=== PATIENT | female | born 1970 | race Caucasian/White ===

== ENCOUNTER 2018-08-15 13:51 | Emergency (ER) | payer BC ==
--- NOTE | 2018-08-19 07:14 | CONSULT ---
Consult Consult: This patient LEFT WITHOUT BEING SEEN as indicated in the nurse's note.
== END 2018-08-15 14:30 | disposition left against medical advice (07) ==
LOC: UCEAST 13:51
DX: Z53.21 Procedure and treatment not carried out due to patient leaving prior to being seen by health care provider (principal)

== ENCOUNTER 2018-08-15 16:18 | Emergency (ER) | payer BC ==
[2018-08-15 16:30] VITALS: BP 136/87
--- NOTE | 2018-08-15 16:39 | ED ---
Skin Complaint - HPI Summary HPI Summary: 47-year-old female with a history of lumpectomy from breast cancer presents with 7 day history of itchy rash in her right posterior shoulder. She does have a history of chickenpox as a child. She denies rash or lesions elsewhere. She denies any cough cold or upper respiratory symptoms. She has not used anything to treat it. She hasn't been on chemotherapy. - History of Current Complaint Chief Complaint: UCSkin Time Seen by Provider: 08/15/18 16:33 Stated Complaint: SKIN COMPLAINT Hx Obtained From: Patient Hx Last Menstrual Period: January Pain Intensity: 0 - Allergy/Home Medications Allergies/Adverse Reactions: Allergies Allergy/AdvReac Type Severity Reaction Status Date / Time No Known Allergies Allergy Verified 08/15/18 16:23 PMH/Surg Hx/FS Hx/Imm Hx Previously Healthy: No - breast cancer diagnosis with lumpectomy Endocrine/Hematology History: Denies: Hx Diabetes Cardiovascular History: Denies: Hx Hypertension, Hx Pacemaker/ICD Respiratory History: Denies: Hx Asthma Sensory History: Denies: Hx Hearing Aid Psychiatric History: Denies: Hx Panic Disorder - Cancer History Cancer Type, Location and Year: NEW RT BREAST IN SITU Hx Chemotherapy: No Hx Radiation Therapy: No - Surgical History Surgery Procedure, Year, and Place: RT BREAST BIOPSY. R breast lumpectomy in Infectious Disease History: No Infectious Disease History: Denies: Traveled Outside the [place] in Last 30 Days - Family History Known Family History: Positive: Non-Contributory - Social History Occupation: Employed Full-time Lives: With Family Alcohol Use: Daily Alcohol Amount: 1 drink per day Substance Use Type: Reports: None Smoking Status (MU): Never Smoked Tobacco Have You Smoked in the Last Year: No Review of Systems Negative: Fever, Chills Negative: Sore Throat, Nasal Discharge Negative: Chest Pain Negative: Cough Gastrointestinal: Negative Positive: Rash All Other Systems Reviewed And Are Negative: Yes Physical Exam Triage Information Reviewed: Yes Vital Signs On Initial Exam: Initial Vitals Temp Pulse Resp BP Pulse Ox 98.7 F 99 18 136/87 97 08/15/18 16:24 08/15/18 16:24 08/15/18 16:24 08/15/18 16:24 08/15/18 16:24 Vital Signs Reviewed: Yes Appearance: Positive: Well-Appearing, No Pain Distress, Well-Nourished Skin: Positive: Warm, Dry, Other - Cluster of erythematous, crusted herpetiform lesions in the right posterior scapula in a dermatomal pattern Head/Face: Positive: Normal Head/Face Inspection Eyes: Positive: EOMI ENT: Positive: Normal ENT inspection Neck: Positive: Supple Respiratory/Lung Sounds: Positive: Clear to Auscultation Cardiovascular: Positive: RRR Musculoskeletal: Positive: Strength/ROM Intact Neurological: Positive: Alert, Oriented to Person Place, Time Psychiatric: Positive: Normal Diagnostics - Vital Signs Vital Signs Temp Pulse Resp BP Pulse Ox 08/15/18 16:24 98.7 F 99 18 136/87 97 - Laboratory Lab Statement: Any lab studies that have been ordered have been reviewed, and results considered in the medical decision making process. Course/Dx - Course Course Of Treatment: Nurse's notes reviewed. Patient without immunocompromise with herpetic lesions consistent with diagnosis of shingles. Start Valtrex. No real discomfort at this time and it appears as though it is likely improving. She'll avoid unvaccinated individuals and women. - Differential Diagnoses - Skin Complaint Differential Diagnoses: Drug Intoxication, Eczema, Varicella Zoster - Diagnoses Provider Diagnoses: Herpes zoster Discharge - Sign-Out/Discharge Documenting (check all that apply): Patient Departure All imaging exams completed and their final reports reviewed: No Studies - Discharge Plan Condition: Improved Disposition: HOME Prescriptions: Valacyclovir HCl [Valacyclovir] 1,000 mg PO TID #21 tablet Patient Education Materials: Shingles (ED), Shingles Vaccine (ED) Referrals: Jade Landaverde MD [Primary Care Provider] - Additional Instructions: Avoid unvaccinated women and unvaccinated children. This is contagious to those folks. Return with concerns for infection, uncontrolled pain, worse, new symptoms or other concerns. Follow up with your family doctor or oncologist for reevaluation as needed. - Billing Disposition and Condition Condition: IMPROVED Disposition: Home - Attestation Statements Document Initiated by Cleopatra: Iris
== END 2018-08-15 16:50 | disposition home or self-care (01) ==
LOC: UCEAST 16:18
DX: B02.9 Zoster without complications (principal); Z90.12 Acquired absence of left breast and nipple; Z85.3 Personal history of malignant neoplasm of breast
CPT/HCPCS: 99202; G0463

== ENCOUNTER 2019-02-03 14:09 | Emergency (ER) | payer BC ==
[2019-02-03 14:32] VITALS: BP 118/69
--- NOTE | 2019-02-03 14:38 | UC ---
Hand/Wrist HPI - HPI Summary HPI Summary: 48 yo female presents with nodules to LEFT hand. She tells me the over the last month or so she has noticed firm nodules in her palm. Not painful, but she is concerned as they seem to be enlarging. She is right handed. 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 She has intermittent tingling in her 3rd, 4th , and 5th digit. No wrist pain. No specific injury. She does not have any instances of her fingers getting stuck in a flexed or extended position. - History Of Current Complaint Chief Complaint: KOLTONkin Stated Complaint: LUMP IN PALM OF HAND Time Seen by Provider: 02/03/19 14:38 Hx Obtained From: Patient Hx Last Menstrual Period: January Onset/Duration: Gradual Onset Severity Currently: None Pain Intensity: 0 - Allergies/Home Medications Allergies/Adverse Reactions: Allergies Allergy/AdvReac Type Severity Reaction Status Date / Time No Known Allergies Allergy Verified 02/03/19 14:32 Home Medications: Home Medications Tamoxifen TAB* [Nolvadex*] 10 mg PO DAILY 02/03/19 [History Confirmed 02/03/19] PMH/Surg Hx/FS Hx/Imm Hx - Additional Past Medical History Additional PMH: BRCA - Surgical History Surgical History: Yes Surgery Procedure, Year, and Place: RT BREAST BIOPSY. R breast lumpectomy in - Family History Known Family History: Positive: Non-Contributory - Social History Lives: With Family Alcohol Use: Daily Alcohol Amount: 1 drink per day Substance Use Type: None Smoking Status (MU): Never Smoked Tobacco Have You Smoked in the Last Year: No Review of Systems All Other Systems Reviewed And Are Negative: Yes Constitutional: Positive: Negative Skin: Positive: Negative Respiratory: Positive: Negative Cardiovascular: Positive: Negative Neurovascular: Positive: Negative Musculoskeletal: Positive: Other: - Left hand nodules Neurological: Positive: Negative Psychological: Positive: Negative Physical Exam - Summary Physical Exam Summary: GENERAL: NAD. WDWN. No pain distress. SKIN: No rashes, sores, lesions, or open wounds. CHEST: No accessory muscle use. Breathing comfortably and in no distress. CV: Pulses intact radial and ulnar. Cap refill <2seconds MSK: LEFT HAND: Palm - 3rd and 4th flexor tendon near MCP with 3mm firm nodules. Do not move with flexion or extension of digits. NTTP. 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 NEURO: Alert. Sensations intact hand and all fingers. PSYCH: Age appropriate behavior. Triage Information Reviewed: Yes Vital Signs: Initial Vital Signs Temp 98.7 F 02/03/19 14:29 Pulse 85 02/03/19 14:29 Resp 18 02/03/19 14:29 BP 118/69 02/03/19 14:29 Pulse Ox 98 02/03/19 14:29 Vital Signs Reviewed: Yes Hand/Wrist Course/Dx - Course Course Of Treatment: XR: IMPRESSION: NO FOCAL OSSEOUS ABNORMALITY IS SEEN. Suspect tendon nodules. Will refer her to Orthopedics for further evaluation. - Differential Dx/Diagnosis Provider Diagnosis: Nodule of flexor tendon sheath Discharge - Sign-Out/Discharge Documenting (check all that apply): Patient Departure All imaging exams completed and their final reports reviewed: Yes - Discharge Plan Condition: Stable Disposition: HOME Referrals: Jade Rowley MD [Primary Care Provider] - Clinton Ramirez MD [Medical Doctor] - 1 Week Additional Instructions: If you develop a fever, shortness of breath, chest pain, new or worsening symptoms - please call your PCP or go to the ED immediately. I suspect the bumps on your left hand are tendon nodules. Please call Orthopedics at the number below to schedule an appointment for further evaluation. - Billing Disposition and Condition Condition: STABLE Disposition: Home - Attestation Statements Provider Attestation: Per institutional requirements, I have reviewed the chart, however, I was not consulted specifically or made aware of this patient by the midlevel provider. I did not personally evaluate, interact with , or disposition this patient.
== END 2019-02-03 15:19 | disposition home or self-care (01) ==
LOC: UCEAST 14:09
DX: R22.32 Localized swelling, mass and lump, left upper limb (principal)
CPT/HCPCS: 99211; G0463